=== PATIENT | male | born 1935 | race Caucasian/White ===

== ENCOUNTER 2016-09-19 22:30 | Emergency (ER) | payer MEDICARE, BC ==
[~2016-09-19 22:30] MED LIST: ASPIR 8181 MG PO; AVALIDE 300-251 TAB; AVANDIA4 MG; AVAPRO300 MG PO; BACTRIM DS TABL1 TAB; CHANTIX1 MG; CHANTIX1 MG PO; CHLORASEPTIC M1 EACH MM; COUMADIN2.5 MG; COUMADIN5 MG; COUMADIN5 MG PO; COZAAR100 M1 PO; COZAAR25 M1 PO; GABAPENTIN100 M1 PO; GLUCOPHAGE500 MG PO; HYDROCHLOROTHIA25 M1 PO; HYDROCHLOROTHIA25 MG PO; IRON1 TAB PO; KEFLEX500 MG PO; LIPITOR10 M1 PO; LIPITOR40 MG; LIPITOR80 M1 PO; METOPROLOL TART50 MG; MONTELUKAST SOD10 M2 PO; MULTIVITAMIN W1 EAC2 PO; NEURONTIN300 M1 PO; NEURONTIN300 MG PO; NEXIUM40 MG PO; NIASPAN500 MG; OMEPRAZOLE20 M3 PO; OXYCODONE; PEPCID AC10 MG PO; PLAVIX75 MG; PLAVIX75 MG PO; SIMCOR 500-21 BOTTLE PO; SPIRONOLACTONE25 M1 PO; TESSALON PERLE100 M1 PO; TOPROL XL50 M1 PO; TRAMADOL HCL50 MG; TYLENOL325 M1 PO; ULTRAM50 MG PO; WARFARIN SODIUM5 MG; WARFARIN SODIUM5 MG PO
== END 2016-09-19 23:10 ==
LOC: EDMED 22:30
DX: L76.21 Postprocedural hemorrhage of skin and subcutaneous tissue following a dermatologic procedure (principal); I48.91 Unspecified atrial fibrillation; E11.9 Type 2 diabetes mellitus without complications; I10 Essential (primary) hypertension; E78.00 Pure hypercholesterolemia, unspecified; K21.9 Gastro-esophageal reflux disease without esophagitis; F17.210 Nicotine dependence, cigarettes, uncomplicated; Z86.73 Personal history of transient ischemic attack (TIA), and cerebral infarction without residual deficits; Z79.01 Long term (current) use of anticoagulants; Y83.8 Other surgical procedures as the cause of abnormal reaction of the patient, or of later complication, without mention of misadventure at the time of the procedure